=== PATIENT | female | born 1975 | race Caucasian/White ===

== ENCOUNTER → 2017-02-15 15:08 | Outpatient (CLI) | payer MEDICARE ==
[2010-09-01 06:32] VITALS: BMI 30.3
== END | disposition home or self-care (01) ==
LOC: D.MAMMO 10:15
DX: Z12.31 Encounter for screening mammogram for malignant neoplasm of breast (principal)

== ENCOUNTER → 2017-06-13 13:57 | Outpatient (CLI) | payer MEDICARE ==
[2010-09-01 06:32] VITALS: BMI 30.3
== END | disposition home or self-care (01) ==
LOC: D.MAMMO 11:30
DX: R92.8 Other abnormal and inconclusive findings on diagnostic imaging of breast (principal)

== ENCOUNTER → 2019-10-29 18:26 | Outpatient (CLI) | payer MEDICARE ==
[2010-09-01 06:32] VITALS: BMI 30.3
== END | disposition home or self-care (01) ==
LOC: D.MAMMO 08:30
PROVIDERS: ATTEND General Practice
DX: Z12.31 Encounter for screening mammogram for malignant neoplasm of breast (principal)